=== PATIENT | male | born 1990 | race Caucasian/White ===

== ENCOUNTER → 2017-03-28 | Outpatient (CLI) | payer OTHER ==
[~2017-03-28] MED LIST: BACTRIM DS 8001 TA1 PO; FLOMAX0.4 MG PO; HYDROCODONE BIT1 T11 PO; PREDNICOT20 MG PO; ZOFRAN4 MG PO
== END | disposition home or self-care (01) ==
LOC: RAD 12:02
DX: M54.5 Low back pain (principal); M54.2 Cervicalgia; M25.512 Pain in left shoulder

== ENCOUNTER 2017-10-12 03:51 | Emergency (ER) | payer OTHER ==
[~2017-10-12] VITALS: Ht 175.2 cm; Wt 77.1 kg
[2017-10-12 04:24] LABS: HEMATOCRIT 43.8 % (42.0-52.0); HEMOGLOBIN 15.3 g/dl (14.0-18.0); MEAN CELL VOLUME 90.7 fl (80.0-94.0); MEAN CORPUSCULAR HGB 31.7 pg (27.0-31.0); MEAN CORPUSCULAR HGB CONC 34.9 g/dl (33.0-37.0); MEAN PLATELET VOLUME 9.7 fl (9.6-12.3); PLATELET COUNT AUTOMATED 181 10*3/uL (130-400); RED BLOOD COUNT 4.83 10*6/uL (4.50-5.90); RED CELL DISTRI WIDTH 12.6 % (0-14.5); WHITE BLOOD COUNT 10.6 10*3/uL (4.8-10.8)
[2017-10-12 04:42] LABS: PLATELET SUFFICIENCY NORMAL (NORMAL); TOTAL CELLS COUNTED 100 #CELLS
[2017-10-12 04:48] LABS: ALBUMIN 4.5 gm/dl (3.1-4.5); ALKALINE PHOSPHATASE 68 U/L (45-117); BUN 20 mg/dl (7-24); CHLORIDE 105 mmol/L (98-107); CREATININE 1.03 mg/dL (0.70-1.30); LIPASE 108 U/L (73-393); SGOT/AST 21 IU/L (3-35); SGPT/ALT 22 U/L (12-78); SODIUM 140 mmol/L (136-145); TOTAL PROTEIN 7.7 gm/dL (6.4-8.2)
[2017-10-12] MEDS ORDERED: LOMOTIL 2.5-0.1 EACH PO (05:23)
[2017-10-12] MEDS ORDERED: ZOFRAN ODT4 MG SL (05:23)
== END 2017-10-12 06:31 | disposition home or self-care (01) ==
LOC: ED 03:51
PROVIDERS: Emergency Medicine Emergency Medical Services
DX: K52.9 Noninfective gastroenteritis and colitis, unspecified (principal); Z87.442 Personal history of urinary calculi

== ENCOUNTER 2018-02-25 23:16 | Emergency (ER) | payer SELFPAY ==
[~2018-02-25] VITALS: Ht 177.8 cm; Wt 72.6 kg
[~2018-02-25 23:16] MED LIST changes: +LOMOTIL 2.5-0.1 EACH PO; +ZOFRAN ODT4 MG SL
[2018-02-26 00:21] LABS: BILIRUBIN NEGATIVE (NEGATIVE); BLOOD TRACE-INTACT (NEGATIVE); CLARITY CLEAR (CLEAR); COLOR YELLOW (YELLOW); GLUCOSE NEGATIVE (NEGATIVE); KETONE TRACE (NEGATIVE); LEUKO ESTERASE NEGATIVE (NEGATIVE); NITRITE NEGATIVE (NEGATIVE); SPECIFIC GRAVITY 1.025 (1.005-1.030)
[2018-02-26] MEDS ORDERED: MYCOLOG CREAM 115 GM T (00:45)
== END 2018-02-26 02:23 | disposition home or self-care (01) ==
LOC: ED 23:16
PROVIDERS: Nurse Practitioner Family
DX: L30.8 Other specified dermatitis (principal); E11.9 Type 2 diabetes mellitus without complications; Z87.442 Personal history of urinary calculi; Z79.899 Other long term (current) drug therapy

== ENCOUNTER 2018-11-01 11:46 | Emergency (ER) | payer SELFPAY ==
[~2018-11-01] VITALS: Wt 79.4 kg
[~2018-11-01 11:46] MED LIST changes: +MYCOLOG CREAM 115 GM T
[2018-11-01 11:47] VITALS: BP 106/48
[2018-11-01] MEDS ORDERED: IBUPROFEN600 MG PO (13:49)
[2018-11-01] MEDS ORDERED: NORCO 5-325 TA1 EACH PO (13:49)
== END 2018-11-01 13:50 | disposition home or self-care (01) ==
LOC: ED 11:46 → EDHOLD 14:01
DX: S62.396A Other fracture of fifth metacarpal bone, right hand, initial encounter for closed fracture (principal); W00.0XXA Fall on same level due to ice and snow, initial encounter; Y93.89 Activity, other specified; Y92.89 Other specified places as the place of occurrence of the external cause; Y99.8 Other external cause status

== ENCOUNTER 2021-07-12 20:40 | Emergency (ER) | payer OTHER ==
[~2021-07-12] VITALS: Ht 177.8 cm; Wt 77.1 kg
[~2021-07-12 20:40] MED LIST changes: +Bactroban Oint22 GM T; +IBUPROFEN600 MG PO; +KEFLEX500 M1 PO; +NORCO 5-325 TA1 EACH PO
[2021-07-12 21:49] LABS: BILIRUBIN Negative (Negative); BLOOD Negative (Negative); CLARITY Turbid (Clear); COLOR Yellow (Yellow); GLUCOSE Negative (Negative); KETONE Negative (Negative); LEUKO ESTERASE Negative (Negative); NITRITE Negative (Negative)
[2021-07-12 21:55] LABS: BACTERIA 2+; EPITHELIAL CELLS 0-2; PH 8.5 (4.5-8.0); RBC 0-2 rbc/hpf (0-2); WBC 0-2 wbc/hpf (0-5)
[2021-07-12] MEDS ORDERED: CYCLOBENZAPRINE5 M3 PO (22:05)
[2021-07-12] MEDS ORDERED: Motrin,Rufen800 MG PO (22:05)
== END 2021-07-12 22:17 | disposition home or self-care (01) ==
LOC: ED 20:40
PROVIDERS: Physician Assistant
DX: M54.6 Pain in thoracic spine (principal)

== ENCOUNTER 2021-08-16 09:21 | Emergency (ER) | payer OTHER ==
[~2021-08-16] VITALS: Ht 177.8 cm; Wt 76.2 kg
[~2021-08-16 09:21] MED LIST changes: +CYCLOBENZAPRINE5 M3 PO; +Motrin,Rufen800 MG PO
== END 2021-08-16 11:59 | disposition home or self-care (01) ==
LOC: ED 09:21
DX: S93.402A Sprain of unspecified ligament of left ankle, initial encounter (principal); W10.8XXA Fall (on) (from) other stairs and steps, initial encounter; Y93.89 Activity, other specified; Y92.89 Other specified places as the place of occurrence of the external cause; Y99.8 Other external cause status

== ENCOUNTER 2023-07-13 14:15 | Emergency (ER) | payer OTHER ==
[~2023-07-13] VITALS: Ht 177.8 cm; Wt 76.2 kg
[2023-07-13] MEDS ORDERED: HYDROCODONE-AC1 EAC1 PO (16:25)
== END 2023-07-13 16:34 | disposition home or self-care (01) ==
LOC: ED 14:15
DX: S20.212A Contusion of left front wall of thorax, initial encounter (principal); Z98.890 Other specified postprocedural states; Z87.442 Personal history of urinary calculi; W22.8XXA Striking against or struck by other objects, initial encounter; Y93.89 Activity, other specified; Y92.89 Other specified places as the place of occurrence of the external cause; Y99.8 Other external cause status

== ENCOUNTER 2024-03-24 19:43 | Emergency (ER) | payer OTHER ==
[~2024-03-24] VITALS: Ht 177.8 cm; Wt 77.1 kg
[~2024-03-24 19:43] MED LIST changes: +HYDROCODONE-AC1 EAC1 PO
[2024-03-24] MEDS ORDERED: MUCINEX ER600 MG PO (20:59)
[2024-03-24] MEDS ORDERED: GUAIFENESIN 600 MG TAB ER PO ONE (21:00)
== END 2024-03-24 21:05 | disposition home or self-care (01) ==
LOC: ED 19:43
DX: J32.9 Chronic sinusitis, unspecified (principal); Z87.442 Personal history of urinary calculi; Z98.890 Other specified postprocedural states

== ENCOUNTER 2025-08-07 09:36 | Emergency (ER) | payer OTHER ==
[~2025-08-07] VITALS: Ht 177.8 cm; Wt 77.1 kg
[~2025-08-07 09:36] MED LIST changes: +MUCINEX ER600 MG PO
[2025-08-07] MEDS ORDERED: NAPROSYN500 MG PO (11:31)
[2025-08-07] MEDS ORDERED: TYLE3UD PO (11:31)
== END 2025-08-07 11:56 | disposition home or self-care (01) ==
LOC: ED 09:36
DX: S60.221A Contusion of right hand, initial encounter (principal); Z87.442 Personal history of urinary calculi; X58.XXXA Exposure to other specified factors, initial encounter; Y93.89 Activity, other specified; Y92.89 Other specified places as the place of occurrence of the external cause; Y99.8 Other external cause status

== ENCOUNTER 2025-08-13 06:48 | Emergency (ER) | payer OTHER ==
[~2025-08-13] VITALS: Ht 177.8 cm; Wt 79.4 kg
[~2025-08-13 06:48] MED LIST changes: +NAPROSYN500 MG PO; +TYLE3UD PO
[2025-08-13] MEDS ORDERED: CEPHALEXIN500 M1 PO (07:07)
[2025-08-13] MEDS ORDERED: Bactroban Oint22 GM T (07:07)
== END 2025-08-13 07:47 | disposition home or self-care (01) ==
LOC: ED 06:48
DX: L20.9 Atopic dermatitis, unspecified (principal)